=== PATIENT | female | born 2000 | race Two or more races ===

== ENCOUNTER → 2024-10-27 | Outpatient (CLI) | payer BC, MEDICAID, SELFPAY ==
--- NOTE | 2024-10-27 11:00 | XR_ITS ---
Examination: Pelvic ultrasound, transabdominal, complete Technique: Transabdominal ultrasound of the pelvis performed using grayscale imaging Date and time of exam: October 27, 2024, 11:03 AM INDICATIONS: Pelvic pain irregular menses beginning 6 months ago FINDINGS: Uterus 7.3 x 3.1 x 4.4 cm No uterine mass or intrauterine gestation Endometrial stripe 0.3 cm Right ovary 3.4 cm arterial flow Left ovary 3.9 cm arterial flow IMPRESSION: Negative examination
== END | disposition home or self-care (01) ==
PROVIDERS: PCP Nurse Practitioner Family; Referring Provider Nurse Practitioner Family; Visit Provider Nurse Practitioner Family
DX: R10.30 Lower abdominal pain, unspecified (principal); N92.0 Excessive and frequent menstruation with regular cycle
CPT/HCPCS: 76856

== ENCOUNTER 2025-07-18 18:03 | Emergency (ER) | payer BC, MEDICAID, SELFPAY ==
[2025-07-18 18:05] VITALS: BP 151/87; PULSE 107; RESP 19; TEMP 36.9; O2SAT 100
[2025-07-18 18:16] VITALS: PULSE 122; O2SAT 97
[2025-07-18 18:30] VITALS: BP 148/92; PULSE 102; RESP 16; TEMP 36.8; O2SAT 99; BMI 32.6
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
[2025-07-18] MEDS: ACETAMINOPHEN 500 MG TABLET 1000 MG PO (19:49)
[2025-07-18 20:09] LABS: HCG Qualitative,Urine Negative
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
[2025-07-18 23:17] VITALS: BP 129/83; PULSE 91; RESP 18; TEMP 37.2; O2SAT 97
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
[2025-07-19] MEDS: KETOROLAC INJ 30 MG/ML VIAL IM (01:10)
[2025-07-19 01:11] VITALS: BP 113/76; PULSE 84; RESP 18; TEMP 36.9; O2SAT 97
== END 2025-07-19 02:08 | disposition home or self-care (01) ==
PROVIDERS: Nurse Practitioner Family; Emergency Provider Emergency Medicine; PCP Nurse Practitioner Family
DX: S30.11XA Contusion of abdominal wall, initial encounter (principal); S20.00XA Contusion of breast, unspecified breast, initial encounter; S93.402A Sprain of unspecified ligament of left ankle, initial encounter; V49.50XA Passenger injured in collision with unspecified motor vehicles in traffic accident, initial encounter; Y92.410 Unspecified street and highway as the place of occurrence of the external cause
CPT/HCPCS: 70450; 71250; 72125; 73030; 73590; 73630; 74176; 81025; 84703; 99282; J1885; A9270